=== PATIENT | female | born 1985 | race Asian ===

== ENCOUNTER 2017-12-31 03:40 | Inpatient (IN) | payer SELFPAY ==
[~2017-12-31] VITALS: Ht 161 cm; Wt 66.2 kg
[2017-12-31] MEDS ORDERED: LACTATED RINGERS 1,000 ML IV SCH (03:59)
[2017-12-31] MEDS ORDERED: OXYTOCIN 10 UNITS/ML VIAL IM ONE (04:00)
[2017-12-31] MEDS ORDERED: AMPICILLIN 2,000 MG in NACL 0.9% MINI-BAG PLUS 100 ML IV SCH (04:00)
[2017-12-31] MEDS ORDERED: OXYTOCIN 20 UNITS in LACTATED RINGERS 1,000 ML IV SCH (04:00)
[2017-12-31] MEDS ORDERED: NALBUPHINE 10 MG/ML AMP IVP PRN (04:00)
[2017-12-31] MEDS ORDERED: BETAMETH ACET/BETAMETH NA PH 30 MG/5 ML VIAL IM ONE ×2 (04:00→04:24)
[2017-12-31] MEDS ORDERED: PROMETHAZINE 25 MG/ML VIAL IVP PRN (04:00)
[2017-12-31] MEDS ORDERED: AMPICILLIN 2,000 MG VIAL ONE (04:23)
[2017-12-31 04:28] LABS: BASOPHILS # (AUTO) 0.1 K/uL (0.00-0.22); BASOPHILS % (AUTO) 0.4 % (0.0-2.0); EOSINOPHILS # (AUTO) 0.2 K/uL (0-0.4); EOSINOPHILS % (AUTO) 1.5 % (0.0-4.0); HEMATOCRIT 35.6 % (36-48); LYMPHOCYTES # (AUTO) 3.5 K/uL (2.5-16.5); LYMPHOCYTES % (AUTO) 23.7 % (20.5-51.1); MEAN CORPUSCULAR HEMOGLOBIN 31 pg (27-31); MEAN CORPUSCULAR HGB CONC 34 g/dL (33-37); MEAN CORPUSCULAR VOLUME 91.3 fL (80-94); MONOCYTES # (AUTO) 0.9 K/uL (0.8-1.0); MONOCYTES % (AUTO) 6.1 % (1.7-9.3); NEUTROPHILS # (AUTO) 10.1 K/uL (1.8-7.7); NEUTROPHILS % (AUTO) 68.3 % (42.2-75.2); PLATELET COUNT (AUTO) 229 K/uL (140-450); RED CELL DISTRIBUTION WIDTH 13.5 % (11.6-13.7); WHITE BLOOD COUNT (AUTO) 14.8 K/uL (4.8-10.8)
[2017-12-31 04:34] LABS: APPEARANCE,URINE CLOUDY (CLEAR); BILIRUBIN,URINE NEGATIVE (NEGATIVE); BLOOD, URINE 3+ (NEGATIVE); COLOR,URINE YELLOW (YELLOW); LEUKOCYTE ESTERASE ,URINE TRACE (NEGATIVE); NITRITE, URINE NEGATIVE (NEGATIVE); PH,URINE 6.5 (5.0-9.0); UGLUCOSE NEGATIVE (NEGATIVE)
[2017-12-31 04:41] LABS: BARBITURATE, URINE NEG. ng/ml (NEG <=200); BENZODIAZEPINE, URINE NEG. ng/mL (NEG <=200); CANNABINOID, URINE NEG. ng/mL (NEG <=50); COCAINE, URINE NEG. ng/mL (NEG <=300); OPIATE, URINE NEG. ng/mL (NEG <=2000); PHENCYCLIDINE SCREEN,URINE NEG. ng/mL (NEG <=25)
[2017-12-31 04:42] LABS: ANION GAP 15.2 (8-16); CARBON DIOXIDE 22.6 mmol/L (21-32); CREATININE 0.5 mg/dL (0.6-1.3); POTASSIUM 3.8 mmol/L (3.5-5.1)
[2017-12-31 04:48] LABS: TOTAL BILIRUBIN 0.3 mg/dL (0.0-1.0)
[2017-12-31 04:58] LABS: RBC,URINE TOO NUMEROUS TO COUN /HPF (0-5)
[2017-12-31] MEDS ORDERED: PROMETHAZINE 25 MG/ML VIAL ONE (05:13)
[2017-12-31] MEDS ORDERED: NALBUPHINE 10 MG/ML AMP ONE (05:13)
[2017-12-31] MEDS ORDERED: ROPIVACAINE 0.2%/NS PREMIX 250 ML EPI ONE (05:24)
[2017-12-31] MEDS ORDERED: ROPIVACAINE 0.2%/NS PREMIX 250 ML EPI SCH (05:40)
[2017-12-31] MEDS ORDERED: OSC500 PO (06:07)
[2017-12-31] MEDS ORDERED: FERR325E14 PO (06:07)
[2017-12-31] MEDS ORDERED: PREN-546 PO (06:07)
[2017-12-31 06:11] VITALS: BP 107/64
[2017-12-31] MEDS ORDERED: AMPICILLIN 1,000 MG in NACL 0.9% MINI-BAG PLUS 50 ML IV SCH (08:00)
[2017-12-31] MEDS ORDERED: AMPICILLIN 1,000 MG VIAL ONE ×2 (08:33→12:36)
--- NOTE | 2017-12-31 08:47 | NUR ---
PATIENT HAS BEEN SCREENED AND CATEGORIZED LOW NUTRITION RISK. PATIENT WILL BE SEEN WITHIN 7 DAYS OF ADMISSION. 01/06/[address]
[2017-12-31] MEDS ORDERED: OXYTOCIN 10 UNITS/ML VIAL ONE (11:51)
[2017-12-31] MEDS ORDERED: OXYTOCIN 20 UNITS/LR PREMIX 1,000 ML IV ONE (12:22)
[2017-12-31] MEDS ORDERED: oxyCODONE/APAP 5/325 MG 1 TAB TAB ONE (16:03)
[2017-12-31] MEDS ORDERED: SODIUM PHOSPHATE 118 ML ENEM RC PRN (17:00)
[2017-12-31] MEDS ORDERED: IBUPROFEN 800 MG TAB PO PRN (17:00)
[2017-12-31] MEDS ORDERED: HYDROcodone/APAP 5/325 MG 1 TAB TAB PO PRN (17:00)
[2017-12-31] MEDS ORDERED: BENZOCAINE/MENTHOL 20%-0.5% 60 GM CAN TP PRN (17:00)
[2017-12-31] MEDS ORDERED: BISACODYL 10 MG SUPP RC PRN (17:00)
[2017-12-31] MEDS ORDERED: TEMAZEPAM 15 MG CAP PO PRN (17:00)
[2017-12-31] MEDS ORDERED: MEASLES, MUMPS, AND RUBELLA 1 VIAL SQVAC PRN (17:00)
[2017-12-31] MEDS ORDERED: DOCUSATE SOD/SENNA 50/8.6 MG 1 TAB PO SCH (21:00)
[2018-01-01] MEDS: oxyCODONE/APAP 5/325 MG 1 TAB TAB PO PRN ×2 (00:49→08:17)
[2018-01-01 06:26] LABS: HEMATOCRIT 31.4 % (36-48); HEMOGLOBIN 10.7 g/dL (12.0-16.0)
== END 2018-01-01 16:15 | disposition home or self-care (01) | DRG 775 ==
LOC: MLD 03:40 → MFCC 16:21
PROVIDERS: ADMIT Obstetrics & Gynecology; ATTEND Obstetrics & Gynecology
PROC: 10E0XZZ Delivery of Products of Conception, External Approach (ICD-10-PCS; principal; 2017-12-31)
PROC: 10907ZC Drainage of Amniotic Fluid, Therapeutic from Products of Conception, Via Natural or Artificial Opening (ICD-10-PCS; 2017-12-31)
PROC: 0HQ9XZZ Repair Perineum Skin, External Approach (ICD-10-PCS; 2017-12-31)
PROC: 00HU33Z Insertion of Infusion Device into Spinal Canal, Percutaneous Approach (ICD-10-PCS; 2017-12-31)
PROC: 3E0R3BZ Introduction of Anesthetic Agent into Spinal Canal, Percutaneous Approach (ICD-10-PCS; 2017-12-31)
PROC: 3E0234Z Introduction of Serum, Toxoid and Vaccine into Muscle, Percutaneous Approach (ICD-10-PCS; 2018-01-01)
PROC: 3E0234Z Introduction of Serum, Toxoid and Vaccine into Muscle, Percutaneous Approach (ICD-10-PCS; 2018-01-01)
DX: O42.913 Preterm premature rupture of membranes, unspecified as to length of time between rupture and onset of labor, third trimester (principal); Z37.0 Single live birth; O69.81X0 Labor and delivery complicated by cord around neck, without compression, not applicable or unspecified; Z3A.36 36 weeks gestation of pregnancy; O70.0 First degree perineal laceration during delivery; Z23 Encounter for immunization
CPT/HCPCS: 36415; 51702; 59409; 80053; 80305; 81001; 85018; 85025; 86592; 86886; 86900; 86901; 87086; 87653-90; 90707; 90715; J0290; J0702; J2300; J2550; J2590; J2795; J7120